=== PATIENT | female | born 1935 | race Caucasian/White ===

== ENCOUNTER 2018-07-30 16:38 | Inpatient (IN) | payer MEDICAID, MEDICARE ==
[~2018-07-30] VITALS: Ht 167.6 cm; Wt 52.7 kg
[~2018-07-30 16:38] MED LIST: AMI2 MT; AMLO2.5T45 MT; CARV3.1242 MT; LOSA50TA20 MT; SITA100T11 MT
[2018-07-30] MEDS ORDERED: SODIUM CHLORIDE 0.9% 1,000 ML IV ONE (18:14)
[2018-07-30] MEDS ORDERED: MORPHINE SULFATE 4 MG/ML CPJ (NOT FOR IM USE) IV STA (18:14)
[2018-07-30 18:32] LABS: BASOPHILS % 0.3 % (0.0-2.0); EOSINOPHILS % 1.4 % (0.0-5.0); HEMATOCRIT. 27.8 % (36.0-48.0); HEMOGLOBIN. 9.2 g/dL (12.0-16.0); LYMPHOCYTES % 7.5 % (20.0-50.0); MEAN CORPUSCULAR HEMOGLOBIN 33.2 pg (28.0-32.0); MEAN CORPUSCULAR VOLUME 100.6 fL (81.0-99.0); MEAN PLATELET VOLUME 8.7 fl (7.4-10.4); NEUTROPHILS % 83.8 % (40.0-76.0); PLATELET 185 x1000/uL (130-400); RED BLOOD CELL COUNT 2.76 mill/uL (4.2-5.4); RED CELL DISTRIBUTION WIDTH 15.2 % (11.6-14.6)
[2018-07-30 18:39] LABS: CHLORIDE 116 mEq/L (98-107)
[2018-07-30 18:48] LABS: CLARITY URINE CLEAR (CLEAR); COLOR URINE YELLOW (YELLOW); KETONES URINE NEGATIVE (NEGATIVE); LEUKOCYTE ESTERASE URINE NEGATIVE (NEGATIVE); NITRITE URINE NEGATIVE (NEGATIVE); OCCULT BLOOD URINE 1+ (NEGATIVE); PH URINE 5.5 (4.5-8.0); PROTEIN URINE 4+ (NEGATIVE); SPECIFIC GRAVITY URINE 1.019 (1.005-1.030); UROBILINOGEN URINE 0.2 E.U./dL (0.2-1.0)
[2018-07-30] MEDS ORDERED: SODIUM POLYSTYRENE SULFONATE 15 G/60 ML BOT PO ONE (19:30)
[2018-07-30 19:52] LABS: CREATINE KINASE 322 IU/L (26-192)
[2018-07-30] MEDS ORDERED: MORPHINE SULFATE 2 MG/ML CPJ (NOT FOR IM USE) IV NR (21:30)
[2018-07-30] MEDS ORDERED: DEXTROSE 50% WATER 50ML SYRINGE IV ONE (22:45)
[2018-07-30] MEDS ORDERED: SODIUM CHLORIDE 0.9% 1,000 ML IV SCH (23:15)
[2018-07-30 23:55] VITALS: BP 142/61
[2018-07-31] MEDS ORDERED: DEXTROSE 50% WATER 50ML SYRINGE IV PRN (00:30)
[2018-07-31] MEDS: SODIUM CHLORIDE 0.9% 1,000 ML IV SCH ×2 (01:22→11:30)
[2018-07-31] MEDS: MORPHINE SULFATE 10MG/5ML ORAL SOLN UDC PO PRN ×2 (01:26→13:40)
[2018-07-31 04:00] VITALS: BP 150/64
[2018-07-31] MEDS ORDERED: CEFTRIAXONE 1 G PREMIX 50 ML IV SCH ×2 (04:00→06:00)
[2018-07-31] MEDS: BLOOD SUGAR DIAGNOSTIC STRIP TEST SCH ×4 (07:30→21:43)
[2018-07-31 08:00] VITALS: BP 158/71
[2018-07-31] MEDS: INSULIN LISPRO 100 UNITS/ML SUBCUT SCH ×4 (08:00→21:55)
[2018-07-31] MEDS ORDERED: AMLODIPINE 10MG TABLET PO SCH (09:00)
[2018-07-31] MEDS: CARVEDILOL 3.125 MG TABLET PO SCH ×2 (10:23→21:57)
[2018-07-31] MEDS: AMLODIPINE 10MG TABLET PO SCH (10:23)
[2018-07-31] MEDS: AMIODARONE HCL 200 MG TABLET PO SCH (10:24)
[2018-07-31 12:00] VITALS: BP 133/73
[2018-07-31 12:20] LABS: BG BASE EXCESS -6.7 mmol/L (-2.0-2.0); BG CARBOXYHEMOGLOBIN 0.4 % (0.5-1.5); BG DEOXYHEMOGLOBIN 2.1 % (0.0-5.0); BG FRACTION INSPIRED OXYGEN 21; BG HCO3 ACT 17.4 mmol/L (22.0-26.0); BG METHEMOGLOBIN 0.1 % (0.0-1.5); BG OXYGEN SATURATION 97.9 % (92.0-98.5); BG OXYHEMOGLOBIN 97.4 % (94.0-97.0); BG PCO2 29.2 mmHg (35.0-45.0); BG PH 7.392 (7.350-7.450); BG PO2 117.3 mmHg (75.0-100.0); BG SAMPLE SITE RIGHT RADIAL; BG VENT MODE ROOM AIR
[2018-07-31] MEDS ORDERED: LIDOCAINE HCL 1% 20ML VIAL (Pyxis) INJ ONE (12:52)
[2018-07-31 16:00] VITALS: BP 157/65
[2018-07-31 20:00] VITALS: BP 115/58
[2018-07-31] MEDS ORDERED: EPOETIN ALFA 4000UNITS/ML VIAL SUBCUT NR (21:00)
[2018-08-01] VITALS (7 sets, daily range): BP systolic 129–168; BP diastolic 54–74
[2018-08-01] MEDS: SODIUM CHLORIDE 0.9% 1,000 ML IV SCH ×3 (04:45→20:55)
[2018-08-01] MEDS: BLOOD SUGAR DIAGNOSTIC STRIP TEST SCH ×4 (06:41→20:54)
[2018-08-01] MEDS: INSULIN LISPRO 100 UNITS/ML SUBCUT SCH ×4 (06:41→20:58)
[2018-08-01 08:10] LABS: BASOPHILS % 0.4 % (0.0-2.0); EOSINOPHILS % 4.1 % (0.0-5.0); HEMATOCRIT. 23.7 % (36.0-48.0); LYMPHOCYTES % 14.9 % (20.0-50.0); MEAN CORPUSCULAR HEMOGLOBIN 33.7 pg (28.0-32.0); MEAN CORPUSCULAR VOLUME 99.4 fL (81.0-99.0); MEAN PLATELET VOLUME 8.6 fl (7.4-10.4); MONOCYTES % 10.3 % (2.0-8.0); NEUTROPHILS % 70.3 % (40.0-76.0); PLATELET 162 x1000/uL (130-400); RED BLOOD CELL COUNT 2.38 mill/uL (4.2-5.4); RED CELL DISTRIBUTION WIDTH 14.9 % (11.6-14.6)
[2018-08-01 08:46] LABS: INR 1.1; PARTIAL THROMBOPLASTIN TIME 26.6 sec (23.4-31.0); PROTHROMBIN TIME 10.6 sec (9.1-11.1)
[2018-08-01 10:19] LABS: PHOSPHORUS 4.2 mg/dL (2.5-4.9)
[2018-08-01] MEDS: CITRIC ACID/SODIUM CITRATE SOLN 30ML UDC PO SCH ×3 (10:29→16:50)
[2018-08-01] MEDS: AMIODARONE HCL 200 MG TABLET PO SCH (10:30)
[2018-08-01] MEDS: AMLODIPINE 10MG TABLET PO SCH (10:30)
[2018-08-01] MEDS: CARVEDILOL 3.125 MG TABLET PO SCH ×2 (10:30→20:54)
[2018-08-01] MEDS ORDERED: AMLO10TA80 PO (13:03)
[2018-08-02 00:21] VITALS: BP 147/68
[2018-08-02 04:00] VITALS: BP 163/64
[2018-08-02] MEDS: BLOOD SUGAR DIAGNOSTIC STRIP TEST SCH ×4 (06:05→21:08)
[2018-08-02] MEDS: INSULIN LISPRO 100 UNITS/ML SUBCUT SCH ×4 (06:16→21:15)
[2018-08-02 08:00] VITALS: BP 178/70
[2018-08-02] MEDS: CITRIC ACID/SODIUM CITRATE SOLN 30ML UDC PO SCH ×3 (08:13→17:22)
[2018-08-02] MEDS: AMLODIPINE 10MG TABLET PO SCH (08:13)
[2018-08-02] MEDS: CARVEDILOL 3.125 MG TABLET PO SCH ×2 (08:13→21:11)
[2018-08-02] MEDS: AMIODARONE HCL 200 MG TABLET PO SCH (08:13)
[2018-08-02 11:21] LABS: BASOPHILS % 0.2 % (0.0-2.0); HEMATOCRIT. 23.3 % (36.0-48.0); HEMOGLOBIN. 7.9 g/dL (12.0-16.0); LYMPHOCYTES % 10.9 % (20.0-50.0); MEAN CORPUSCULAR HEMOGLOBIN 33.3 pg (28.0-32.0); MEAN CORPUSCULAR VOLUME 98.8 fL (81.0-99.0); MEAN PLATELET VOLUME 8.6 fl (7.4-10.4); NEUTROPHILS % 76.9 % (40.0-76.0); PLATELET 155 x1000/uL (130-400); RED BLOOD CELL COUNT 2.36 mill/uL (4.2-5.4); RED CELL DISTRIBUTION WIDTH 15.1 % (11.6-14.6)
[2018-08-02 12:00] VITALS: BP 147/56
[2018-08-02 12:04] LABS: PHOSPHORUS 3.7 mg/dL (2.5-4.9)
[2018-08-02 16:00] VITALS: BP 150/58
[2018-08-02] MEDS: SODIUM CHLORIDE 0.9% 1,000 ML IV SCH (18:11)
[2018-08-02 20:00] VITALS: BP 149/57
[2018-08-03] VITALS: BP 166/67
[2018-08-03 04:00] VITALS: BP 156/65
[2018-08-03] MEDS: BLOOD SUGAR DIAGNOSTIC STRIP TEST SCH ×4 (06:04→20:10)
[2018-08-03] MEDS: INSULIN LISPRO 100 UNITS/ML SUBCUT SCH ×4 (06:09→20:14)
[2018-08-03 07:08] LABS: BASOPHILS % 0.4 % (0.0-2.0); EOSINOPHILS % 3.2 % (0.0-5.0); HEMATOCRIT. 25.4 % (36.0-48.0); HEMOGLOBIN. 8.7 g/dL (12.0-16.0); LYMPHOCYTES % 18.5 % (20.0-50.0); MEAN CORPUSCULAR HEMOGLOBIN 33.6 pg (28.0-32.0); MEAN CORPUSCULAR VOLUME 98.7 fL (81.0-99.0); MEAN PLATELET VOLUME 8.6 fl (7.4-10.4); MONOCYTES % 9.9 % (2.0-8.0); PLATELET 169 x1000/uL (130-400); RED BLOOD CELL COUNT 2.58 mill/uL (4.2-5.4); RED CELL DISTRIBUTION WIDTH 14.6 % (11.6-14.6)
[2018-08-03 07:48] LABS: PHOSPHORUS 3.8 mg/dL (2.5-4.9)
[2018-08-03 08:00] VITALS: BP 131/65
[2018-08-03] MEDS: CITRIC ACID/SODIUM CITRATE SOLN 30ML UDC PO SCH ×3 (08:07→17:06)
[2018-08-03] MEDS: CARVEDILOL 3.125 MG TABLET PO SCH ×2 (08:07→20:08)
[2018-08-03] MEDS: AMLODIPINE 10MG TABLET PO SCH (08:07)
[2018-08-03] MEDS: AMIODARONE HCL 200 MG TABLET PO SCH (08:07)
[2018-08-03 12:00] VITALS: BP 145/56
[2018-08-03] MEDS: SODIUM CHLORIDE 0.9% 1,000 ML IV SCH (14:13)
[2018-08-03 16:00] VITALS: BP 148/67
[2018-08-03 20:00] VITALS: BP 152/56
[2018-08-03] MEDS: ACETAMINOPHEN 325MG TABLET PO PRN (20:07)
[2018-08-03] MEDS: MIRTAZAPINE 15MG TABLET PO SCH (20:07)
[2018-08-04] VITALS: BP 168/69
[2018-08-04 04:00] VITALS: BP 140/52
[2018-08-04] MEDS: BLOOD SUGAR DIAGNOSTIC STRIP TEST SCH ×4 (05:55→21:45)
[2018-08-04 06:56] LABS: BASOPHILS % 0.6 % (0.0-2.0); EOSINOPHILS % 3.6 % (0.0-5.0); HEMOGLOBIN. 8.2 g/dL (12.0-16.0); LYMPHOCYTES % 16.2 % (20.0-50.0); MEAN CORPUSCULAR HEMOGLOBIN 33.3 pg (28.0-32.0); MEAN PLATELET VOLUME 8.5 fl (7.4-10.4); MONOCYTES % 11.2 % (2.0-8.0); NEUTROPHILS % 68.4 % (40.0-76.0); PLATELET 174 x1000/uL (130-400); RED BLOOD CELL COUNT 2.45 mill/uL (4.2-5.4); RED CELL DISTRIBUTION WIDTH 14.7 % (11.6-14.6)
[2018-08-04] MEDS: INSULIN LISPRO 100 UNITS/ML SUBCUT SCH ×4 (07:15→21:46)
[2018-08-04 07:38] LABS: PHOSPHORUS 3.4 mg/dL (2.5-4.9)
[2018-08-04 08:00] VITALS: BP 164/60
[2018-08-04] MEDS: AMIODARONE HCL 200 MG TABLET PO SCH (08:45)
[2018-08-04] MEDS: CARVEDILOL 3.125 MG TABLET PO SCH (08:46)
[2018-08-04] MEDS: CITRIC ACID/SODIUM CITRATE SOLN 30ML UDC PO SCH ×2 (09:00→18:52)
[2018-08-04] MEDS: AMLODIPINE 10MG TABLET PO SCH (09:00)
[2018-08-04] MEDS: ACETAMINOPHEN 325MG TABLET PO PRN (11:13)
[2018-08-04] MEDS: SODIUM CHLORIDE 0.9% 1,000 ML IV SCH (11:26)
[2018-08-04 12:00] VITALS: BP 157/60
[2018-08-04 16:00] VITALS: BP 155/58
[2018-08-04] MEDS: HYDRALAZINE HCL 25MG TABLET PO SCH (18:51)
[2018-08-04 20:00] VITALS: BP_SYST 99
[2018-08-04] MEDS: MIRTAZAPINE 15MG TABLET PO SCH (21:45)
[2018-08-05] VITALS: BP 166/57
[2018-08-05] MEDS: CARVEDILOL 3.125 MG TABLET PO SCH ×2 (01:27→08:56)
[2018-08-05] MEDS: HYDRALAZINE HCL 25MG TABLET PO SCH ×2 (01:37→04:57)
[2018-08-05 04:00] VITALS: BP 176/69
[2018-08-05 05:40] LABS: BASOPHILS % 0.1 % (0.0-2.0); MEAN CORPUSCULAR HEMOGLOBIN 33.8 pg (28.0-32.0); MEAN PLATELET VOLUME 8.2 fl (7.4-10.4); MONOCYTES % 8.3 % (2.0-8.0); NEUTROPHILS % 78.6 % (40.0-76.0); PLATELET 226 x1000/uL (130-400); RED BLOOD CELL COUNT 3.01 mill/uL (4.2-5.4); RED CELL DISTRIBUTION WIDTH 14.7 % (11.6-14.6)
[2018-08-05 06:00] LABS: PHOSPHORUS 3.7 mg/dL (2.5-4.9)
[2018-08-05] MEDS: BLOOD SUGAR DIAGNOSTIC STRIP TEST SCH ×2 (06:15→11:45)
[2018-08-05] MEDS: INSULIN LISPRO 100 UNITS/ML SUBCUT SCH ×2 (06:16→13:37)
[2018-08-05 08:00] VITALS: BP 178/63
[2018-08-05 08:24] LABS: HEMATOCRIT. 29.8 % (36.0-48.0); HEMOGLOBIN. 10.2 g/dL (12.0-16.0)
[2018-08-05] MEDS: AMLODIPINE 10MG TABLET PO SCH (08:55)
[2018-08-05] MEDS: AMIODARONE HCL 200 MG TABLET PO SCH (08:56)
[2018-08-05 12:00] VITALS: BP 146/58
[2018-08-05 13:16] LABS: ALBUMIN 2.6 g/dL (2.9-4.4); ALPHA-1-GLOBULIN 0.2 g/dL (0.0-0.4); ALPHA-2-GLOBULIN 0.8 g/dL (0.4-1.0); BETA GLOBULIN 0.7 g/dL (0.7-1.3); GAMMA GLOBULINS 0.7 g/dL (0.4-1.8); GLOBULIN TOTAL 2.5 g/dL (2.2-3.9); M-SPIKE Not Observed g/dL (Not Observed); TOTAL PROTEIN SERUM 5.1 g/dL (6.0-8.5)
[2018-08-05] MEDS ORDERED: HYDRALAZINE HCL 100MG TABLET PO SCH (14:00)
[2018-08-05 14:31] VITALS: BP 146/58
[2018-08-05 16:00] VITALS: BP 106/60
== END 2018-08-05 17:05 | DRG 683 ==
LOC: ER 16:38 → 5EST 19:41 → EDBEDREQTM 19:46 → EDBEDREQ 19:46 → ENRESERV 22:05 → 5WST 07-31 18:20
PROVIDERS: ADMIT Internal Medicine; ATTEND Internal Medicine
PROC: 02HV33Z Insertion of Infusion Device into Superior Vena Cava, Percutaneous Approach (ICD-10-PCS; principal; 2018-07-31)
PROC: B548ZZA Ultrasonography of Superior Vena Cava, Guidance (ICD-10-PCS; 2018-07-31)
DX: N17.9 Acute kidney failure, unspecified (principal); M62.82 Rhabdomyolysis; E44.1 Mild protein-calorie malnutrition; G96.0 Cerebrospinal fluid leak; E87.2 Acidosis; Z68.1 Body mass index [BMI] 19.9 or less, adult; N18.4 Chronic kidney disease, stage 4 (severe); E87.5 Hyperkalemia; E11.22 Type 2 diabetes mellitus with diabetic chronic kidney disease; D63.8 Anemia in other chronic diseases classified elsewhere; E78.00 Pure hypercholesterolemia, unspecified; E78.5 Hyperlipidemia, unspecified; M25.551 Pain in right hip; I13.10 Hypertensive heart and chronic kidney disease without heart failure, with stage 1 through stage 4 chronic kidney disease, or unspecified chronic kidney disease; J84.10 Pulmonary fibrosis, unspecified; N28.1 Cyst of kidney, acquired; J44.9 Chronic obstructive pulmonary disease, unspecified; E87.8 Other disorders of electrolyte and fluid balance, not elsewhere classified; F03.90 Unspecified dementia, unspecified severity, without behavioral disturbance, psychotic disturbance, mood disturbance, and anxiety; Z96.641 Presence of right artificial hip joint; W18.39XA Other fall on same level, initial encounter; Z82.49 Family history of ischemic heart disease and other diseases of the circulatory system; Z83.3 Family history of diabetes mellitus; Z90.710 Acquired absence of both cervix and uterus; Z88.0 Allergy status to penicillin; Z79.899 Other long term (current) drug therapy; Z87.81 Personal history of (healed) traumatic fracture; Y93.89 Activity, other specified; Y92.89 Other specified places as the place of occurrence of the external cause; Y99.8 Other external cause status
CPT/HCPCS: 36415; 36569; 36600; 71045; 73502; 76770; 76937; 80048; 82375; 82550; 82805; 82962; 83735; 84100; 84155; 84165; 84484; 93005; 93306; 96360; 97116; 97162; 97530; 99285; C1725; J0696; J0885; J1815; J2270; J3490; J7030

== ENCOUNTER 2018-09-08 10:10 | Emergency (ER) | payer MEDICARE, MEDICAID ==
[~2018-09-08] VITALS: Ht 152.4 cm; Wt 60.0 kg
[~2018-09-08 10:10] MED LIST changes: +AMLO10TA80 PO; -AMLO2.5T45 MT; -CARV3.1242 MT; -LOSA50TA20 MT
[2018-09-08 14:01] LABS: BASOPHILS % 0.6 % (0.0-2.0); EOSINOPHILS % 4.2 % (0.0-5.0); HEMATOCRIT. 23.4 % (36.0-48.0); HEMOGLOBIN. 7.8 g/dL (12.0-16.0); LYMPHOCYTES % 19.4 % (20.0-50.0); MEAN CORPUSCULAR HEMOGLOBIN 33.8 pg (28.0-32.0); MEAN CORPUSCULAR VOLUME 101.1 fL (81.0-99.0); MEAN PLATELET VOLUME 8.9 fl (7.4-10.4); NEUTROPHILS % 62.8 % (40.0-76.0); PLATELET 216 x1000/uL (130-400); RED BLOOD CELL COUNT 2.31 mill/uL (4.2-5.4)
[2018-09-08 14:02] LABS: CHLORIDE 103 mEq/L (98-107)
[2018-09-08 14:04] LABS: PARTIAL THROMBOPLASTIN TIME 26.4 sec (23.4-31.0); PROTHROMBIN TIME 10.4 sec (9.1-11.1)
[2018-09-08 14:25] VITALS: BP 135/68
== END 2018-09-08 16:41 ==
LOC: ER 10:10 → ENRESERV 13:07 → CANRESERV 13:07 → CANBEDREQ 14:16 → ER 16:41
DX: D64.9 Anemia, unspecified (principal); K92.2 Gastrointestinal hemorrhage, unspecified; R09.02 Hypoxemia; R23.1 Pallor; I13.0 Hypertensive heart and chronic kidney disease with heart failure and stage 1 through stage 4 chronic kidney disease, or unspecified chronic kidney disease; E11.22 Type 2 diabetes mellitus with diabetic chronic kidney disease; N18.9 Chronic kidney disease, unspecified; I50.9 Heart failure, unspecified; Z79.899 Other long term (current) drug therapy
CPT/HCPCS: 36415; 86850; 86900; 99283

== ENCOUNTER 2018-09-15 13:57 | Inpatient (IN) | payer MEDICARE, MEDICAID ==
[~2018-09-15] VITALS: Ht 157.5 cm; Wt 67.1 kg
[2018-09-15 15:37] LABS: BASOPHILS % 0.3 % (0.0-2.0); HEMATOCRIT. 23.7 % (36.0-48.0); HEMOGLOBIN. 7.7 g/dL (12.0-16.0); LYMPHOCYTES % 16.7 % (20.0-50.0); MEAN CORPUSCULAR HEMOGLOBIN 32.7 pg (28.0-32.0); MEAN CORPUSCULAR VOLUME 100.5 fL (81.0-99.0); MEAN PLATELET VOLUME 7.8 fl (7.4-10.4); MONOCYTES % 11.5 % (2.0-8.0); NEUTROPHILS % 67.5 % (40.0-76.0); PLATELET 177 x1000/uL (130-400); RED BLOOD CELL COUNT 2.36 mill/uL (4.2-5.4); RED CELL DISTRIBUTION WIDTH 14.1 % (11.6-14.6)
[2018-09-15 15:39] LABS: CHLORIDE 107 mEq/L (98-107)
[2018-09-15 16:06] LABS: HEPATITIS B SURFACE ANTIGEN NEGATIVE
[2018-09-15 16:36] LABS: HEPATITIS A AB IGM NEGATIVE (NEGATIVE)
[2018-09-15] MEDS ORDERED: ONDANSETRON HCL 4MG/2ML INJ IV PRN (18:00)
[2018-09-15] MEDS ORDERED: DIPHENHYDRAMINE 50MG/ML VIAL IV PRN (18:00)
[2018-09-15] MEDS ORDERED: IPRATROPIUM/ALBUTEROL 0.5-3(2.5)MG/3ML NEB INH PRN (18:00)
[2018-09-15] MEDS ORDERED: ACETAMINOPHEN 325MG TABLET PO PRN (18:00)
[2018-09-15] MEDS ORDERED: HYDROCODONE/ACETAMINOPHEN 5/325MG TABLET PO PRN (18:00)
[2018-09-15 19:27] LABS: CLARITY URINE CLEAR (CLEAR); COLOR URINE YELLOW (YELLOW); KETONES URINE NEGATIVE (NEGATIVE); LEUKOCYTE ESTERASE URINE NEGATIVE (NEGATIVE); NITRITE URINE NEGATIVE (NEGATIVE); OCCULT BLOOD URINE NEGATIVE (NEGATIVE); PH URINE 6.5 (4.5-8.0); PROTEIN URINE 3+ (NEGATIVE); SPECIFIC GRAVITY URINE 1.013 (1.005-1.030); UROBILINOGEN URINE 0.2 E.U./dL (0.2-1.0)
[2018-09-15] MEDS ORDERED: DEXTROSE 50% WATER 50ML SYRINGE IV PRN (23:00)
[2018-09-15 23:44] VITALS: BP 165/56
[2018-09-16] VITALS (12 sets, daily range): BP systolic 106–174; BP diastolic 46–79
[2018-09-16 06:23] LABS: BASOPHILS % 0.2 % (0.0-2.0); EOSINOPHILS % 5.1 % (0.0-5.0); HEMATOCRIT. 23.4 % (36.0-48.0); HEMOGLOBIN. 7.8 g/dL (12.0-16.0); LYMPHOCYTES % 21.7 % (20.0-50.0); MEAN CORPUSCULAR HEMOGLOBIN 33.1 pg (28.0-32.0); MEAN CORPUSCULAR VOLUME 99.6 fL (81.0-99.0); MEAN PLATELET VOLUME 7.9 fl (7.4-10.4); MONOCYTES % 11.1 % (2.0-8.0); NEUTROPHILS % 61.9 % (40.0-76.0); PLATELET 173 x1000/uL (130-400); RED BLOOD CELL COUNT 2.35 mill/uL (4.2-5.4); RED CELL DISTRIBUTION WIDTH 13.6 % (11.6-14.6)
[2018-09-16 06:40] LABS: PHOSPHORUS 4.9 mg/dL (2.5-4.9)
[2018-09-16] MEDS: BLOOD SUGAR DIAGNOSTIC STRIP TEST SCH ×4 (07:00→20:17)
[2018-09-16] MEDS: INSULIN LISPRO 100 UNITS/ML SUBCUT SCH ×4 (07:01→20:17)
[2018-09-16] MEDS ORDERED: CLINDAMYCIN 600 MG in DEXTROSE 5% WATER 50 ML IV ONE (13:45)
[2018-09-16] MEDS ORDERED: SODIUM BICARBONATE 4% (2.4MEQ) 5ML VIAL IV ONE (13:52)
[2018-09-16] MEDS ORDERED: LIDOCAINE HCL 1% 20ML VIAL (Pyxis) INJ ONE (13:52)
[2018-09-16] MEDS ORDERED: HEPARIN 1000 UNITS/ML 10ML ONE (13:52)
[2018-09-16 14:14] LABS: INR 1.1; PARTIAL THROMBOPLASTIN TIME 27.5 sec (23.4-31.0); PROTHROMBIN TIME 10.8 sec (9.1-11.1)
[2018-09-16] MEDS: LEVOTHYROXINE SODIUM 25MCG TABLET PO SCH (18:31)
[2018-09-16] MEDS: EPOETIN ALFA 10000UNITS/ML VIAL SUBCUT SCH (20:54)
[2018-09-17] VITALS: BP 111/83
[2018-09-17 04:00] VITALS: BP 127/76
[2018-09-17] MEDS: BLOOD SUGAR DIAGNOSTIC STRIP TEST SCH ×4 (06:13→20:46)
[2018-09-17] MEDS: LEVOTHYROXINE SODIUM 25MCG TABLET PO SCH (06:19)
[2018-09-17] MEDS: INSULIN LISPRO 100 UNITS/ML SUBCUT SCH ×4 (06:21→20:49)
[2018-09-17 08:00] VITALS: BP 90/68
[2018-09-17] MEDS: AMLODIPINE 10MG TABLET PO SCH (08:54)
[2018-09-17] MEDS: AMIODARONE HCL 200 MG TABLET PO SCH (10:05)
[2018-09-17 13:00] VITALS: BP 100/67
[2018-09-17 16:28] VITALS: BP 132/74
[2018-09-17 18:42] LABS: BASOPHILS % 0.3 % (0.0-2.0); EOSINOPHILS % 1.5 % (0.0-5.0); HEMATOCRIT. 29.1 % (36.0-48.0); HEMOGLOBIN. 9.7 g/dL (12.0-16.0); LYMPHOCYTES % 7.4 % (20.0-50.0); MEAN CORPUSCULAR HEMOGLOBIN 32.7 pg (28.0-32.0); MEAN CORPUSCULAR VOLUME 97.5 fL (81.0-99.0); MEAN PLATELET VOLUME 7.7 fl (7.4-10.4); MONOCYTES % 9.2 % (2.0-8.0); NEUTROPHILS % 81.6 % (40.0-76.0); PLATELET 156 x1000/uL (130-400); RED BLOOD CELL COUNT 2.98 mill/uL (4.2-5.4); RED CELL DISTRIBUTION WIDTH 15.5 % (11.6-14.6)
[2018-09-17 20:00] VITALS: BP 135/110
[2018-09-18] VITALS (15 sets, daily range): BP systolic 110–185; BP diastolic 63–95
[2018-09-18] MEDS: LEVOTHYROXINE SODIUM 25MCG TABLET PO SCH (06:14)
[2018-09-18] MEDS: INSULIN LISPRO 100 UNITS/ML SUBCUT SCH ×4 (06:14→20:48)
[2018-09-18] MEDS: BLOOD SUGAR DIAGNOSTIC STRIP TEST SCH ×4 (06:14→20:48)
[2018-09-18] MEDS ORDERED: LIDOCAINE HCL/EPINEPHRINE 1%-EPI 1:100,000 20 ML VIAL ONE (08:07)
[2018-09-18] MEDS ORDERED: SODIUM BICARBONATE 4% (2.4MEQ) 5ML VIAL IV ONE (08:08)
[2018-09-18] MEDS ORDERED: LIDOCAINE HCL 1% 20ML VIAL (Pyxis) INJ ONE (08:08)
[2018-09-18] MEDS ORDERED: CEFAZOLIN 1000MG PREMIX 0 ML IV ONE (08:47)
[2018-09-18] MEDS ORDERED: FENTANYL CITRATE/PF 50MCG/ML 2ML VIAL ONE (08:47)
[2018-09-18] MEDS ORDERED: FENTANYL CITRATE/PF 50MCG/ML 2ML VIAL IV ONE (08:50)
[2018-09-18] MEDS: AMLODIPINE 10MG TABLET PO SCH (09:00)
[2018-09-18] MEDS ORDERED: IOHEXOL-300 50 ML BOTTLE IV ONE (09:02)
[2018-09-18 11:07] LABS: INR 1.1; PROTHROMBIN TIME 10.7 sec (9.1-11.1)
[2018-09-18 11:07] LABS: BASOPHILS % 0.2 % (0.0-2.0); EOSINOPHILS % 2.3 % (0.0-5.0); HEMATOCRIT. 28.8 % (36.0-48.0); HEMOGLOBIN. 9.5 g/dL (12.0-16.0); LYMPHOCYTES % 12.7 % (20.0-50.0); MEAN CORPUSCULAR HEMOGLOBIN 32.4 pg (28.0-32.0); MEAN CORPUSCULAR VOLUME 97.8 fL (81.0-99.0); MEAN PLATELET VOLUME 7.8 fl (7.4-10.4); MONOCYTES % 9.5 % (2.0-8.0); NEUTROPHILS % 75.3 % (40.0-76.0); PLATELET 148 x1000/uL (130-400); RED BLOOD CELL COUNT 2.95 mill/uL (4.2-5.4); RED CELL DISTRIBUTION WIDTH 15.2 % (11.6-14.6)
[2018-09-18] MEDS: AMIODARONE HCL 200 MG TABLET PO SCH (11:21)
[2018-09-18] MEDS: IRON SUCROSE COMPLEX 100 MG/5 ML ML IV SCH (11:21)
[2018-09-18 12:37] LABS: T4 FREE 1.07 ng/dL (0.76-1.46)
[2018-09-18 13:02] LABS: VITAMIN B12 SERUM 1156 pg/mL (211-911)
[2018-09-18 13:16] LABS: FOLIC ACID (FOLATE) SERUM > 20.00 ng/mL (>5.38)
[2018-09-18 14:21] LABS: FERRITIN 462 ng/mL (10-291)
[2018-09-18] MEDS: EPOETIN ALFA 10000UNITS/ML VIAL SUBCUT SCH (21:13)
[2018-09-19] VITALS: BP_SYST 121; BP_SYST 167; BP_SYST 185; BP_DIAS 63; BP_DIAS 77; BP_DIAS 92
[2018-09-19] MEDS: LORAZEPAM 0.5MG TABLET PO PRN ×2 (01:00→21:39)
[2018-09-19] MEDS: CLONIDINE 0.1MG TABLET PO PRN ×2 (01:01→18:09)
[2018-09-19] MEDS: INSULIN LISPRO 100 UNITS/ML SUBCUT SCH ×4 (06:20→21:00)
[2018-09-19] MEDS: BLOOD SUGAR DIAGNOSTIC STRIP TEST SCH ×4 (06:20→21:38)
[2018-09-19] MEDS: LEVOTHYROXINE SODIUM 25MCG TABLET PO SCH (06:21)
[2018-09-19 07:26] LABS: BASOPHILS % 0.3 % (0.0-2.0); EOSINOPHILS % 1.3 % (0.0-5.0); HEMATOCRIT. 29.2 % (36.0-48.0); HEMOGLOBIN. 9.6 g/dL (12.0-16.0); MEAN CORPUSCULAR HEMOGLOBIN 32.3 pg (28.0-32.0); MEAN CORPUSCULAR VOLUME 98.2 fL (81.0-99.0); MEAN PLATELET VOLUME 8.2 fl (7.4-10.4); MONOCYTES % 12.1 % (2.0-8.0); NEUTROPHILS % 70.3 % (40.0-76.0); PLATELET 109 x1000/uL (130-400); RED BLOOD CELL COUNT 2.98 mill/uL (4.2-5.4); RED CELL DISTRIBUTION WIDTH 15.2 % (11.6-14.6)
[2018-09-19 08:00] VITALS: BP 186/71
[2018-09-19] MEDS: AMIODARONE HCL 200 MG TABLET PO SCH (09:13)
[2018-09-19] MEDS: AMLODIPINE 10MG TABLET PO SCH (09:13)
[2018-09-19] MEDS: IRON SUCROSE COMPLEX 100 MG/5 ML ML IV SCH (09:14)
[2018-09-19 20:00] VITALS: BP 152/62
[2018-09-20] VITALS (8 sets, daily range): BP systolic 129–190; BP diastolic 56–78
[2018-09-20] MEDS: LEVOTHYROXINE SODIUM 25MCG TABLET PO SCH (06:21)
[2018-09-20 07:03] LABS: BASOPHILS % 0.4 % (0.0-2.0); EOSINOPHILS % 2.9 % (0.0-5.0); HEMATOCRIT. 24.4 % (36.0-48.0); HEMOGLOBIN. 8.1 g/dL (12.0-16.0); LYMPHOCYTES % 17.1 % (20.0-50.0); MEAN CORPUSCULAR HEMOGLOBIN 32.2 pg (28.0-32.0); MEAN CORPUSCULAR VOLUME 96.6 fL (81.0-99.0); MEAN PLATELET VOLUME 8.5 fl (7.4-10.4); MONOCYTES % 12.7 % (2.0-8.0); NEUTROPHILS % 66.9 % (40.0-76.0); PLATELET 115 x1000/uL (130-400); RED BLOOD CELL COUNT 2.52 mill/uL (4.2-5.4); RED CELL DISTRIBUTION WIDTH 14.8 % (11.6-14.6)
[2018-09-20] MEDS: BLOOD SUGAR DIAGNOSTIC STRIP TEST SCH ×4 (07:03→21:43)
[2018-09-20] MEDS: INSULIN LISPRO 100 UNITS/ML SUBCUT SCH ×4 (07:03→21:00)
[2018-09-20] MEDS: AMLODIPINE 10MG TABLET PO SCH (09:00)
[2018-09-20] MEDS: AMIODARONE HCL 200 MG TABLET PO SCH (09:20)
[2018-09-20] MEDS: IRON SUCROSE COMPLEX 100 MG/5 ML ML IV SCH (09:20)
[2018-09-20] MEDS ORDERED: ATOR20TA65 MT (14:34)
[2018-09-20 15:55] LABS: HEMOGLOBIN 9.1 g/dL (12.0-16.0); MEAN CORPUSCULAR HEMOGLOBIN 32.7 pg (28.0-32.0); PLATELET 113 x1000/uL (130-400); RED BLOOD CELL COUNT 2.79 mill/uL (4.2-5.4); RED CELL DISTRIBUTION WIDTH 14.8 % (11.6-14.6)
[2018-09-20] MEDS: LORAZEPAM 0.5MG TABLET PO PRN (19:58)
[2018-09-20] MEDS: CLONIDINE 0.1MG TABLET PO PRN (19:58)
[2018-09-20] MEDS: EPOETIN ALFA 10000UNITS/ML VIAL SUBCUT SCH (21:43)
[2018-09-20 21:56] LABS: HEMATOCRIT 27.6 % (36.0-48.0); HEMOGLOBIN 9.1 g/dL (12.0-16.0)
[2018-09-21] VITALS (7 sets, daily range): BP systolic 113–188; BP diastolic 52–87
[2018-09-21] MEDS: CLONIDINE 0.1MG TABLET PO PRN (05:34)
[2018-09-21] MEDS: LEVOTHYROXINE SODIUM 25MCG TABLET PO SCH (06:16)
[2018-09-21] MEDS: BLOOD SUGAR DIAGNOSTIC STRIP TEST SCH ×4 (06:17→21:00)
[2018-09-21] MEDS: INSULIN LISPRO 100 UNITS/ML SUBCUT SCH ×4 (06:17→21:00)
[2018-09-21 07:53] LABS: BASOPHILS % 0.2 % (0.0-2.0); EOSINOPHILS % 1.6 % (0.0-5.0); HEMATOCRIT. 26.8 % (36.0-48.0); HEMOGLOBIN. 8.9 g/dL (12.0-16.0); LYMPHOCYTES % 9.8 % (20.0-50.0); MEAN CORPUSCULAR HEMOGLOBIN 32.4 pg (28.0-32.0); MEAN CORPUSCULAR VOLUME 97.9 fL (81.0-99.0); MEAN PLATELET VOLUME 7.9 fl (7.4-10.4); MONOCYTES % 10.7 % (2.0-8.0); NEUTROPHILS % 77.7 % (40.0-76.0); PLATELET 136 x1000/uL (130-400); RED BLOOD CELL COUNT 2.73 mill/uL (4.2-5.4); RED CELL DISTRIBUTION WIDTH 14.9 % (11.6-14.6)
[2018-09-21] MEDS: IRON SUCROSE COMPLEX 100 MG/5 ML ML IV SCH (08:33)
[2018-09-21] MEDS: AMIODARONE HCL 200 MG TABLET PO SCH (08:33)
[2018-09-21] MEDS: AMLODIPINE 10MG TABLET PO SCH (08:34)
[2018-09-21 10:31] LABS: INR 1.1; PROTHROMBIN TIME 10.7 sec (9.1-11.1)
[2018-09-21] MEDS: RISPERIDONE 0.5MG TABLET PO SCH (20:41)
[2018-09-22] VITALS (13 sets, daily range): BP systolic 147–176; BP diastolic 55–87
[2018-09-22] MEDS: CLONIDINE 0.1MG TABLET PO PRN ×2 (00:36→21:47)
[2018-09-22] MEDS: BLOOD SUGAR DIAGNOSTIC STRIP TEST SCH ×4 (06:20→21:52)
[2018-09-22] MEDS: LEVOTHYROXINE SODIUM 25MCG TABLET PO SCH (06:20)
[2018-09-22] MEDS: INSULIN LISPRO 100 UNITS/ML SUBCUT SCH ×4 (06:20→21:00)
[2018-09-22 09:31] LABS: HEMATOCRIT. 25.4 % (36.0-48.0); HEMOGLOBIN. 8.5 g/dL (12.0-16.0); MEAN CORPUSCULAR HEMOGLOBIN 32.9 pg (28.0-32.0); MEAN CORPUSCULAR VOLUME 97.9 fL (81.0-99.0); MEAN PLATELET VOLUME 7.3 fl (7.4-10.4); PLATELET 139 x1000/uL (130-400); RED BLOOD CELL COUNT 2.59 mill/uL (4.2-5.4); RED CELL DISTRIBUTION WIDTH 14.8 % (11.6-14.6)
[2018-09-22] MEDS ORDERED: SODIUM BICARBONATE 4% (2.4MEQ) 5ML VIAL IV ONE (10:02)
[2018-09-22] MEDS ORDERED: LIDOCAINE HCL 1% 20ML VIAL (Pyxis) INJ ONE (10:02)
[2018-09-22 10:49] LABS: PLATELET ESTIMATE NORMAL
[2018-09-22] MEDS: AMLODIPINE 10MG TABLET PO SCH (18:27)
[2018-09-22] MEDS: AMIODARONE HCL 200 MG TABLET PO SCH (18:27)
[2018-09-22] MEDS: IRON SUCROSE COMPLEX 100 MG/5 ML ML IV SCH (18:27)
[2018-09-22] MEDS: RISPERIDONE 0.5MG TABLET PO SCH (21:00)
== END 2018-09-22 23:05 | DRG 673 ==
LOC: ER 13:57 → 8WST 17:24 → EDBEDREQ 17:29 → EDBEDREQTM 17:29 → ENRESERV 21:29 → 8WST 09-17 15:16 → UNDODISIN 09-17 22:30
PROVIDERS: ADMIT Internal Medicine; ATTEND Internal Medicine
PROC: 5A1D70Z Performance of Urinary Filtration, Intermittent, Less than 6 Hours Per Day (ICD-10-PCS; 2018-09-15)
PROC: 0JH63XZ Insertion of Tunneled Vascular Access Device into Chest Subcutaneous Tissue and Fascia, Percutaneous Approach (ICD-10-PCS; principal; 2018-09-16)
PROC: 02H633Z Insertion of Infusion Device into Right Atrium, Percutaneous Approach (ICD-10-PCS; 2018-09-16)
PROC: B244ZZZ Ultrasonography of Right Heart (ICD-10-PCS; 2018-09-16)
PROC: 30233N1 Transfusion of Nonautologous Red Blood Cells into Peripheral Vein, Percutaneous Approach (ICD-10-PCS; 2018-09-16)
PROC: B2141ZZ Fluoroscopy of Right Heart using Low Osmolar Contrast (ICD-10-PCS; 2018-09-16)
PROC: 5A1D70Z Performance of Urinary Filtration, Intermittent, Less than 6 Hours Per Day (ICD-10-PCS; 2018-09-18)
PROC: 0JH63XZ Insertion of Tunneled Vascular Access Device into Chest Subcutaneous Tissue and Fascia, Percutaneous Approach (ICD-10-PCS; 2018-09-18)
PROC: 02HV33Z Insertion of Infusion Device into Superior Vena Cava, Percutaneous Approach (ICD-10-PCS; 2018-09-18)
PROC: B5181ZA Fluoroscopy of Superior Vena Cava using Low Osmolar Contrast, Guidance (ICD-10-PCS; 2018-09-18)
PROC: B548ZZA Ultrasonography of Superior Vena Cava, Guidance (ICD-10-PCS; 2018-09-18)
PROC: 5A1D70Z Performance of Urinary Filtration, Intermittent, Less than 6 Hours Per Day (ICD-10-PCS; 2018-09-19)
PROC: 5A1D70Z Performance of Urinary Filtration, Intermittent, Less than 6 Hours Per Day (ICD-10-PCS; 2018-09-22)
PROC: 0JH63XZ Insertion of Tunneled Vascular Access Device into Chest Subcutaneous Tissue and Fascia, Percutaneous Approach (ICD-10-PCS; 2018-09-22)
PROC: 02HV33Z Insertion of Infusion Device into Superior Vena Cava, Percutaneous Approach (ICD-10-PCS; 2018-09-22)
PROC: B5181ZA Fluoroscopy of Superior Vena Cava using Low Osmolar Contrast, Guidance (ICD-10-PCS; 2018-09-22)
PROC: B548ZZA Ultrasonography of Superior Vena Cava, Guidance (ICD-10-PCS; 2018-09-22)
DX: I12.0 Hypertensive chronic kidney disease with stage 5 chronic kidney disease or end stage renal disease (principal); N18.6 End stage renal disease; E44.0 Moderate protein-calorie malnutrition; D63.1 Anemia in chronic kidney disease; E11.22 Type 2 diabetes mellitus with diabetic chronic kidney disease; E03.9 Hypothyroidism, unspecified; E78.5 Hyperlipidemia, unspecified; E78.00 Pure hypercholesterolemia, unspecified; F03.90 Unspecified dementia, unspecified severity, without behavioral disturbance, psychotic disturbance, mood disturbance, and anxiety; E55.9 Vitamin D deficiency, unspecified; J44.9 Chronic obstructive pulmonary disease, unspecified; Z90.710 Acquired absence of both cervix and uterus; Z99.2 Dependence on renal dialysis; Z88.0 Allergy status to penicillin; Z68.27 Body mass index [BMI] 27.0-27.9, adult; Z78.1 Physical restraint status; Z79.899 Other long term (current) drug therapy; Z79.84 Long term (current) use of oral hypoglycemic drugs
CPT/HCPCS: 36415; 36558; 71045; 76937; 77001; 80048; 80061; 82140; 82607; 82728; 82746; 82962; 83036; 83540; 83550; 83735; 83880; 84100; 84439; 84443; 84481; 84484; 85014; 85018; 85027; 85044; 86705; 86706; 86709; 86803; 86850; 86900; 86920; 87340; 93005; 93970; 99152; 99153; 99285; C1750; C1769; C1887; C1893; J0690; J0885; J1642; J1644; J1815; J3010; J3490; J7040; J7050; J7060; P9016; Q9967; G0500

== ENCOUNTER 2019-01-12 23:32 | Inpatient (IN) | payer MEDICARE, MEDICAID ==
[~2019-01-12] VITALS: Ht 152.4 cm; Wt 52.2 kg
[~2019-01-12 23:32] MED LIST changes: +ATOR20TA65 MT
[2019-01-13] MEDS ORDERED: MORPHINE SULFATE 4 MG/ML CPJ (NOT FOR IM USE) IV STA (02:02)
[2019-01-13] MEDS ORDERED: ONDANSETRON HCL 4MG/2ML INJ IV STA (02:02)
[2019-01-13 02:29] LABS: CHLORIDE 101 mEq/L (98-107)
[2019-01-13 02:31] LABS: PROTHROMBIN TIME 9.9 sec (9.6-11.0)
[2019-01-13 02:34] LABS: BASOPHILS % 0.2 % (0.0-2.0); EOSINOPHILS % 1.2 % (0.0-5.0); HEMATOCRIT. 28.5 % (36.0-48.0); HEMOGLOBIN. 9.5 g/dL (12.0-16.0); LYMPHOCYTES % 9.7 % (20.0-50.0); MEAN CORPUSCULAR HEMOGLOBIN 32.1 pg (28.0-32.0); MEAN CORPUSCULAR VOLUME 96.1 fL (81.0-99.0); MEAN PLATELET VOLUME 7.9 fl (7.4-10.4); MONOCYTES % 8.4 % (2.0-8.0); NEUTROPHILS % 80.5 % (40.0-76.0); PLATELET 223 x1000/uL (130-400); RED BLOOD CELL COUNT 2.97 mill/uL (4.2-5.4); RED CELL DISTRIBUTION WIDTH 14.8 % (11.6-14.6)
[2019-01-13 02:36] LABS: BETA HYDROXYBUTYRATE 0.1 mMol/L (0.0-0.3)
[2019-01-13] MEDS ORDERED: INSULIN REGULAR (HUMULIN R) 300UNITS/3ML SUBCUT ONE (04:15)
[2019-01-13 08:00] VITALS: BP 142/35
[2019-01-13 08:20] VITALS: BP 142/35
[2019-01-13] MEDS ORDERED: CLONIDINE 0.1MG TABLET PO PRN (09:45)
[2019-01-13] MEDS ORDERED: HYDROMORPHONE HCL/PF 2MG/ML CPJ IV PRN (09:45)
[2019-01-13] MEDS ORDERED: IPRATROPIUM/ALBUTEROL 0.5-3(2.5)MG/3ML NEB INH PRN (09:45)
[2019-01-13] MEDS ORDERED: ONDANSETRON HCL 4MG/2ML INJ IV PRN (09:45)
[2019-01-13] MEDS ORDERED: DEXTROSE 50% WATER 50ML SYRINGE IV PRN (11:45)
[2019-01-13 12:00] VITALS: BP 137/36
[2019-01-13] MEDS ORDERED: FERR325T6 MT (12:11)
[2019-01-13] MEDS ORDERED: AMIN30LI2 PO (12:11)
[2019-01-13] MEDS ORDERED: LEVO25TA2 MT (12:11)
[2019-01-13] MEDS ORDERED: FOLI1TAB63 MT (12:11)
[2019-01-13] MEDS ORDERED: POTA-9 MT (12:11)
[2019-01-13] MEDS ORDERED: AMLO10TA80 MT (12:12)
[2019-01-13] MEDS ORDERED: AMI2 MT (12:13)
[2019-01-13] MEDS ORDERED: HYDR-4133 MT (12:13)
[2019-01-13] MEDS: BLOOD SUGAR DIAGNOSTIC STRIP TEST SCH ×3 (12:41→21:29)
[2019-01-13] MEDS: INSULIN LISPRO 100 UNITS/ML SUBCUT SCH ×3 (12:42→21:00)
[2019-01-13] MEDS: ACETAMINOPHEN 325MG TABLET PO PRN ×2 (12:54→21:01)
[2019-01-13 16:00] VITALS: BP 148/50
[2019-01-13] MEDS: AMIODARONE HCL 200 MG TABLET PO SCH (17:39)
[2019-01-13 20:00] VITALS: BP 131/50
[2019-01-13] MEDS ORDERED: LORAZEPAM 0.5MG TABLET PO PRN (21:00)
[2019-01-13] MEDS ORDERED: VANCOMYCIN 1250MG in DEXTROSE 5% WATER 250ML IV NR (21:00)
[2019-01-13] MEDS ORDERED: DIPHENHYDRAMINE 25MG CAPSULE PO PRN (21:00)
[2019-01-13] MEDS: HYDRALAZINE HCL 10MG TABLET PO SCH (21:00)
[2019-01-14] VITALS (9 sets, daily range): BP systolic 102–141; BP diastolic 39–72
[2019-01-14] MEDS: BLOOD SUGAR DIAGNOSTIC STRIP TEST SCH ×4 (06:00→21:52)
[2019-01-14 06:25] LABS: BASOPHILS % 0.2 % (0.0-2.0); EOSINOPHILS % 2.8 % (0.0-5.0); HEMATOCRIT. 24.7 % (36.0-48.0); HEMOGLOBIN. 8.4 g/dL (12.0-16.0); LYMPHOCYTES % 11.7 % (20.0-50.0); MEAN CORPUSCULAR HEMOGLOBIN 32.5 pg (28.0-32.0); MEAN CORPUSCULAR VOLUME 95.6 fL (81.0-99.0); MEAN PLATELET VOLUME 7.8 fl (7.4-10.4); MONOCYTES % 9.1 % (2.0-8.0); NEUTROPHILS % 76.2 % (40.0-76.0); PLATELET 221 x1000/uL (130-400); RED BLOOD CELL COUNT 2.59 mill/uL (4.2-5.4); RED CELL DISTRIBUTION WIDTH 14.8 % (11.6-14.6)
[2019-01-14] MEDS ORDERED: LEVOTHYROXINE SODIUM 25MCG TABLET PO SCH (07:40)
[2019-01-14] MEDS: INSULIN LISPRO 100 UNITS/ML SUBCUT SCH ×4 (08:10→21:53)
[2019-01-14] MEDS ORDERED: AMLODIPINE 10MG TABLET PO SCH (09:00)
[2019-01-14] MEDS ORDERED: FOLIC ACID/VITAMIN B COMP W-C TABLET PO SCH (09:00)
[2019-01-14] MEDS: HYDRALAZINE HCL 10MG TABLET PO SCH ×2 (10:21→21:55)
[2019-01-14] MEDS: AMIODARONE HCL 200 MG TABLET PO SCH (10:22)
[2019-01-14] MEDS: ACETAMINOPHEN 325MG TABLET PO PRN (14:46)
[2019-01-14] MEDS ORDERED: EPOETIN ALFA 10000UNITS/ML VIAL SUBCUT SCH (21:00)
== END 2019-01-14 22:27 | DRG 637 ==
LOC: ER 23:32 → 7WST 01-13 04:20 → EDBEDREQTM 01-13 04:23 → EDBEDREQ 01-13 04:23 → EDBEDREQSVC 01-13 04:23 → ENRESERV 01-13 07:16
PROVIDERS: ADMIT Internal Medicine; ATTEND Internal Medicine
PROC: 5A1D70Z Performance of Urinary Filtration, Intermittent, Less than 6 Hours Per Day (ICD-10-PCS; principal; 2019-01-14)
DX: E11.65 Type 2 diabetes mellitus with hyperglycemia (principal); N18.6 End stage renal disease; L03.114 Cellulitis of left upper limb; E44.0 Moderate protein-calorie malnutrition; E87.1 Hypo-osmolality and hyponatremia; I12.0 Hypertensive chronic kidney disease with stage 5 chronic kidney disease or end stage renal disease; I82.602 Acute embolism and thrombosis of unspecified veins of left upper extremity; L03.113 Cellulitis of right upper limb; D63.8 Anemia in other chronic diseases classified elsewhere; E78.00 Pure hypercholesterolemia, unspecified; E11.22 Type 2 diabetes mellitus with diabetic chronic kidney disease; E78.5 Hyperlipidemia, unspecified; F03.90 Unspecified dementia, unspecified severity, without behavioral disturbance, psychotic disturbance, mood disturbance, and anxiety; J44.9 Chronic obstructive pulmonary disease, unspecified; Z99.2 Dependence on renal dialysis; Z68.22 Body mass index [BMI] 22.0-22.9, adult; Z88.0 Allergy status to penicillin
CPT/HCPCS: 36415; 71045; 80048; 82010; 82962; 83605; 84145; 84484; 93005; 93970; J0885; J1170; J1815; J2270; J2405; J3370; J7060; Q0163

== ENCOUNTER 2019-03-17 17:46 | Inpatient (IN) | payer MEDICARE, MEDICAID ==
[~2019-03-17] VITALS: Ht 304.8 cm; Wt 70.3 kg
[~2019-03-17 17:46] MED LIST changes: +AMIN30LI2 PO; +AMLO10TA80 MT; +FERR325T6 MT; +FOLI1TAB63 MT; +HYDR-4133 MT; +LEVO25TA2 MT; +POTA-9 MT; -SITA100T11 MT
[2019-03-17] MEDS ORDERED: CLONIDINE 0.1MG TABLET PO PRN (18:30)
[2019-03-17] MEDS ORDERED: DIPHENHYDRAMINE 50MG/ML VIAL IV PRN (18:30)
[2019-03-17] MEDS ORDERED: MAGNESIUM/ALUMINUM HYDROXIDE/SIMETHICONE 30ML UDC PO PRN (18:30)
[2019-03-17] MEDS ORDERED: ACETAMINOPHEN 325MG TABLET PO PRN (18:30)
[2019-03-17] MEDS ORDERED: DOCUSATE SODIUM 100MG CAPSULE PO PRN (18:30)
[2019-03-17] MEDS ORDERED: ONDANSETRON HCL 4MG/2ML INJ IV PRN (18:30)
[2019-03-17] MEDS ORDERED: HYDROCODONE/ACETAMINOPHEN 5/325MG TABLET PO PRN (18:30)
[2019-03-17] MEDS ORDERED: IPRATROPIUM/ALBUTEROL 0.5-3(2.5)MG/3ML NEB INH PRN (18:30)
[2019-03-17] MEDS ORDERED: GUAIFENESIN 200MG/10ML SUGAR FREE UDC PO PRN (18:30)
[2019-03-17 20:00] VITALS: BP 146/68
[2019-03-17 21:35] LABS: CHLORIDE 100 mEq/L (98-107)
[2019-03-17 21:38] LABS: BASOPHILS % 0.5 % (0.0-2.0); EOSINOPHILS % 2.7 % (0.0-5.0); HEMATOCRIT. 43.1 % (36.0-48.0); HEMOGLOBIN. 14.4 g/dL (12.0-16.0); LYMPHOCYTES % 14.1 % (20.0-50.0); MEAN CORPUSCULAR VOLUME 104.4 fL (81.0-99.0); MEAN PLATELET VOLUME 9.2 fl (7.4-10.4); MONOCYTES % 10.7 % (2.0-8.0); PLATELET 203 x1000/uL (130-400); RED BLOOD CELL COUNT 4.12 mill/uL (4.2-5.4); RED CELL DISTRIBUTION WIDTH 14.6 % (11.6-14.6)
[2019-03-17 21:41] LABS: PHOSPHORUS 3.7 mg/dL (2.5-4.9)
[2019-03-17 21:47] VITALS: BP 144/68
[2019-03-17] MEDS ORDERED: DEXTROSE 50% WATER 50ML SYRINGE IV PRN (22:15)
[2019-03-17 22:31] LABS: CREATINE KINASE 47 IU/L (26-192)
[2019-03-17 22:32] LABS: CREATINE KINASE MB FRACTION < 1.0 ng/mL (0.5-3.6)
[2019-03-18] VITALS: BP 133/54
[2019-03-18 04:00] VITALS: BP 121/91
[2019-03-18] MEDS: BLOOD SUGAR DIAGNOSTIC STRIP TEST SCH ×4 (07:35→21:00)
[2019-03-18] MEDS: INSULIN LISPRO 100 UNITS/ML SUBCUT SCH ×4 (07:50→22:36)
[2019-03-18 08:00] VITALS: BP 100/67
[2019-03-18 12:12] VITALS: BP 160/61
[2019-03-18 15:02] LABS: CREATINE KINASE 35 IU/L (26-192)
[2019-03-18 15:03] LABS: CREATINE KINASE MB FRACTION < 1.0 ng/mL (0.5-3.6)
[2019-03-18 17:20] VITALS: BP 129/75
[2019-03-18 20:00] VITALS: BP 142/74
[2019-03-19] VITALS: BP 142/70
[2019-03-19 04:00] VITALS: BP 151/71
[2019-03-19] MEDS: BLOOD SUGAR DIAGNOSTIC STRIP TEST SCH ×4 (07:40→21:00)
[2019-03-19] MEDS: INSULIN LISPRO 100 UNITS/ML SUBCUT SCH ×3 (08:05→18:13)
[2019-03-19 16:00] VITALS: BP 142/88
[2019-03-19 20:00] VITALS: BP 142/73
[2019-03-20 04:00] VITALS: BP 123/68
[2019-03-20] MEDS: INSULIN LISPRO 100 UNITS/ML SUBCUT SCH ×3 (06:50→12:20)
[2019-03-20] MEDS: BLOOD SUGAR DIAGNOSTIC STRIP TEST SCH ×2 (07:26→11:56)
[2019-03-20 08:00] VITALS: BP 124/66
[2019-03-20 12:00] VITALS: BP 132/67
[2019-03-20 13:00] VITALS: BP 142/75
== END 2019-03-20 14:45 | DRG 682 ==
LOC: 6EST 17:46
PROVIDERS: ADMIT Internal Medicine; ATTEND Internal Medicine
PROC: 5A1D70Z Performance of Urinary Filtration, Intermittent, Less than 6 Hours Per Day (ICD-10-PCS; principal; 2019-03-19)
DX: I12.0 Hypertensive chronic kidney disease with stage 5 chronic kidney disease or end stage renal disease (principal); N18.6 End stage renal disease; E46 Unspecified protein-calorie malnutrition; Z68.1 Body mass index [BMI] 19.9 or less, adult; E11.65 Type 2 diabetes mellitus with hyperglycemia; D63.1 Anemia in chronic kidney disease; E11.22 Type 2 diabetes mellitus with diabetic chronic kidney disease; E55.9 Vitamin D deficiency, unspecified; E78.5 Hyperlipidemia, unspecified; L89.159 Pressure ulcer of sacral region, unspecified stage; X58.XXXA Exposure to other specified factors, initial encounter; S40.811A Abrasion of right upper arm, initial encounter; S90.415A Abrasion, left lesser toe(s), initial encounter; L89.620 Pressure ulcer of left heel, unstageable; F03.90 Unspecified dementia, unspecified severity, without behavioral disturbance, psychotic disturbance, mood disturbance, and anxiety; J44.9 Chronic obstructive pulmonary disease, unspecified; L89.899 Pressure ulcer of other site, unspecified stage; Z99.2 Dependence on renal dialysis; Y93.89 Activity, other specified; Y92.89 Other specified places as the place of occurrence of the external cause; Y99.8 Other external cause status
CPT/HCPCS: 36415; 71045; 80048; 80076; 82550; 82553; 82962; 83735; 84100; 84134; 84443; 84484; 93970; 97162; 97166; C1893; J1815

== ENCOUNTER 2019-05-16 18:57 | Inpatient (IN) | payer MEDICARE, MEDICAID ==
[~2019-05-16] VITALS: Ht 162.6 cm; Wt 59.0 kg
[~2019-05-16 18:57] MED LIST changes: -AMLO10TA80 MT; -FERR325T6 MT; -POTA-9 MT
[2019-05-16] MEDS ORDERED: LORAZEPAM 2MG/ML CPJ IV ONE (21:00)
[2019-05-16 21:49] LABS: BASOPHILS % 0.4 % (0.0-2.0); EOSINOPHILS % 3.1 % (0.0-5.0); HEMATOCRIT. 29.4 % (36.0-48.0); HEMOGLOBIN. 9.7 g/dL (12.0-16.0); LYMPHOCYTES % 20.3 % (20.0-50.0); MEAN CORPUSCULAR HEMOGLOBIN 34.6 pg (28.0-32.0); MEAN PLATELET VOLUME 7.8 fl (7.4-10.4); MONOCYTES % 12.5 % (2.0-8.0); NEUTROPHILS % 63.7 % (40.0-76.0); PLATELET 215 x1000/uL (130-400); RED CELL DISTRIBUTION WIDTH 16.7 % (11.6-14.6)
[2019-05-16 21:55] LABS: CHLORIDE 102 mEq/L (98-107)
[2019-05-16 21:58] LABS: PARTIAL THROMBOPLASTIN TIME 23.9 sec (23.4-31.0); PROTHROMBIN TIME 10.1 sec (9.6-11.0)
[2019-05-16] MEDS ORDERED: IPRATROPIUM/ALBUTEROL 0.5-3(2.5)MG/3ML NEB NEB PRN (22:15)
[2019-05-16] MEDS ORDERED: DOCUSATE SODIUM 100MG CAPSULE PO PRN (22:15)
[2019-05-16] MEDS ORDERED: CLONIDINE 0.1MG TABLET PO PRN (22:15)
[2019-05-16] MEDS ORDERED: ONDANSETRON HCL 4MG/2ML INJ IV PRN (22:15)
[2019-05-16] MEDS ORDERED: ACETAMINOPHEN 325MG TABLET PO PRN (22:15)
[2019-05-17 05:05] LABS: BASOPHILS % 0.2 % (0.0-2.0); EOSINOPHILS % 3.1 % (0.0-5.0); HEMATOCRIT. 33.2 % (36.0-48.0); HEMOGLOBIN. 10.7 g/dL (12.0-16.0); LYMPHOCYTES % 12.8 % (20.0-50.0); MEAN CORPUSCULAR HEMOGLOBIN 33.9 pg (28.0-32.0); MEAN CORPUSCULAR VOLUME 105.6 fL (81.0-99.0); MEAN PLATELET VOLUME 7.5 fl (7.4-10.4); MONOCYTES % 9.8 % (2.0-8.0); NEUTROPHILS % 74.1 % (40.0-76.0); PLATELET 223 x1000/uL (130-400); RED BLOOD CELL COUNT 3.14 mill/uL (4.2-5.4); RED CELL DISTRIBUTION WIDTH 17.3 % (11.6-14.6)
[2019-05-17] MEDS ORDERED: LORAZEPAM 2MG/ML CPJ ONE (10:11)
[2019-05-17 14:00] VITALS: BP 126/66
[2019-05-17 16:10] VITALS: BP 161/66
[2019-05-17] MEDS ORDERED: LORAZEPAM 2MG/ML CPJ IV PRN (16:45)
[2019-05-17] MEDS: ATORVASTATIN CALCIUM 20MG TABLET PO SCH (17:59)
[2019-05-17] MEDS: HYDRALAZINE HCL 10MG TABLET PO SCH (17:59)
[2019-05-17] MEDS: AMIODARONE HCL 200 MG TABLET PO SCH (17:59)
[2019-05-17] MEDS: ASPIRIN 81MG TABLET PO SCH (17:59)
[2019-05-17] MEDS: AMLODIPINE 10MG TABLET PO SCH (17:59)
[2019-05-17] MEDS: LEVOTHYROXINE SODIUM 25MCG TABLET PO SCH (18:05)
[2019-05-17] MEDS ORDERED: DEXTROSE 50% WATER 50ML SYRINGE IV PRN (18:30)
[2019-05-17 19:22] LABS: CLARITY URINE CLOUDY (CLEAR); COLOR URINE YELLOW (YELLOW); KETONES URINE NEGATIVE (NEGATIVE); LEUKOCYTE ESTERASE URINE 3+ (NEGATIVE); NITRITE URINE NEGATIVE (NEGATIVE); OCCULT BLOOD URINE 1+ (NEGATIVE); PH URINE >=9.0 (4.5-8.0); PROTEIN URINE 3+ (NEGATIVE); SPECIFIC GRAVITY URINE 1.016 (1.005-1.030); UROBILINOGEN URINE 0.2 E.U./dL (0.2-1.0)
[2019-05-17 19:33] LABS: *BARBITURATES SCREEN URINE NEGATIVE (NEGATIVE); *BENZODIAZEPINES SCREEN URINE NEGATIVE (NEGATIVE); *COCAINE SCREEN URINE NEGATIVE (NEGATIVE); METHADONE URINE SCREEN NEGATIVE (NEGATIVE)
[2019-05-17 19:34] LABS: *AMPHETAMINES SCREEN URINE NEGATIVE (NEGATIVE); CANNABINOID URINE SCREEN NEGATIVE (NEGATIVE); OPIATES URINE SCREEN NEGATIVE (NEGATIVE); PHENCYCLIDINE URINE SCREEN NEGATIVE (NEGATIVE)
[2019-05-17 20:00] VITALS: BP 126/67
[2019-05-17] MEDS: BLOOD SUGAR DIAGNOSTIC STRIP TEST SCH (21:00)
[2019-05-17] MEDS: INSULIN LISPRO 100 UNITS/ML SUBCUT SCH (21:00)
[2019-05-17] MEDS: HEPARIN 5000 UNITS/ML VIAL SUBCUT SCH (21:47)
[2019-05-18] VITALS: BP 120/54
[2019-05-18 04:00] VITALS: BP 119/55
[2019-05-18] MEDS: LEVOTHYROXINE SODIUM 25MCG TABLET PO SCH (06:02)
[2019-05-18] MEDS: BLOOD SUGAR DIAGNOSTIC STRIP TEST SCH ×4 (06:03→21:50)
[2019-05-18 08:00] VITALS: BP 101/42
[2019-05-18] MEDS: AMIODARONE HCL 200 MG TABLET PO SCH (10:04)
[2019-05-18] MEDS: AMLODIPINE 10MG TABLET PO SCH (10:04)
[2019-05-18] MEDS: ATORVASTATIN CALCIUM 20MG TABLET PO SCH (10:05)
[2019-05-18] MEDS: ASPIRIN 81MG TABLET PO SCH (10:05)
[2019-05-18] MEDS: HYDRALAZINE HCL 10MG TABLET PO SCH ×2 (10:05→18:40)
[2019-05-18] MEDS: INSULIN LISPRO 100 UNITS/ML SUBCUT SCH ×4 (10:07→21:00)
[2019-05-18 12:00] VITALS: BP 95/53
[2019-05-18 12:57] LABS: BASOPHILS % 0.3 % (0.0-2.0); EOSINOPHILS % 2.4 % (0.0-5.0); HEMATOCRIT. 29.5 % (36.0-48.0); HEMOGLOBIN. 9.7 g/dL (12.0-16.0); LYMPHOCYTES % 12.7 % (20.0-50.0); MEAN CORPUSCULAR HEMOGLOBIN 34.3 pg (28.0-32.0); MEAN CORPUSCULAR VOLUME 105.1 fL (81.0-99.0); MEAN PLATELET VOLUME 8.6 fl (7.4-10.4); MONOCYTES % 9.8 % (2.0-8.0); NEUTROPHILS % 74.8 % (40.0-76.0); PLATELET 208 x1000/uL (130-400); RED BLOOD CELL COUNT 2.81 mill/uL (4.2-5.4); RED CELL DISTRIBUTION WIDTH 20.6 % (11.6-14.6)
[2019-05-18] MEDS: HEPARIN 5000 UNITS/ML VIAL SUBCUT SCH ×2 (13:48→21:00)
[2019-05-18 16:00] VITALS: BP 100/59
[2019-05-18] MEDS ORDERED: DIPHENHYDRAMINE 50MG/ML VIAL IV PRN (18:43)
[2019-05-18 20:00] VITALS: BP 120/70
[2019-05-18] MEDS ORDERED: CEFTRIAXONE IV NR (21:00)
[2019-05-18] MEDS ORDERED: WATER FOR INJECTION STERILE IV NR (21:00)
[2019-05-19] VITALS: BP 120/68
[2019-05-19 04:00] VITALS: BP 122/68
[2019-05-19] MEDS: LEVOTHYROXINE SODIUM 25MCG TABLET PO SCH (07:40)
[2019-05-19] MEDS ORDERED: ALTEPLASE 2MG/VIAL ITC ONE (08:30)
[2019-05-19] MEDS ORDERED: SODIUM BICARBONATE 4% (2.4MEQ) 5ML VIAL IV ONE (08:59)
[2019-05-19] MEDS: ATORVASTATIN CALCIUM 20MG TABLET PO SCH (09:00)
[2019-05-19] MEDS: AMLODIPINE 10MG TABLET PO SCH (09:00)
[2019-05-19] MEDS: HYDRALAZINE HCL 10MG TABLET PO SCH (09:00)
[2019-05-19] MEDS ORDERED: LIDOCAINE HCL 1% 20ML VIAL (Pyxis) INJ ONE (09:00)
[2019-05-19] MEDS: AMIODARONE HCL 200 MG TABLET PO SCH (09:00)
[2019-05-19] MEDS: HEPARIN 5000 UNITS/ML VIAL SUBCUT SCH ×2 (09:00→21:22)
[2019-05-19] MEDS: ASPIRIN 81MG TABLET PO SCH (09:00)
[2019-05-19] MEDS ORDERED: IOHEXOL-300 100 ML BOTTLE ONE (09:00)
[2019-05-19] MEDS ORDERED: HEPARIN 1000 UNITS/ML 10ML ONE (09:01)
[2019-05-19] MEDS ORDERED: FENTANYL CITRATE/PF 50MCG/ML 2ML VIAL ONE (09:45)
[2019-05-19] MEDS ORDERED: MIDAZOLAM HCL 2 MG/2 ML VIAL ONE (09:45)
[2019-05-19] MEDS ORDERED: DIPHENHYDRAMINE 50MG/ML VIAL ONE (09:45)
[2019-05-19] MEDS ORDERED: HEPARIN 5000 UNITS/ML VIAL IV ONE (10:45)
[2019-05-19] MEDS ORDERED: HEPARIN 5000 UNITS/ML VIAL IV NR (10:45)
[2019-05-19] MEDS ORDERED: HYDROMORPHONE HCL/PF 2MG/ML CPJ IV PRN (11:30)
[2019-05-19 12:00] VITALS: BP 146/57
[2019-05-19] MEDS: BLOOD SUGAR DIAGNOSTIC STRIP TEST SCH ×3 (13:10→21:12)
[2019-05-19] MEDS: INSULIN LISPRO 100 UNITS/ML SUBCUT SCH ×3 (13:10→21:21)
[2019-05-19] MEDS ORDERED: HALOPERIDOL LACTATE 5MG/ML VIAL IM PRN (15:30)
[2019-05-19] MEDS ORDERED: [UNRECOGNIZED DRUG - OTHER] XX SCH (15:30)
[2019-05-19] MEDS ORDERED: LEVOFLOXACIN XX SCH (15:30)
[2019-05-19 16:00] VITALS: BP 171/41
[2019-05-19] MEDS ORDERED: LEVOFLOXACIN 250MG TABLET PO SCH (16:30)
[2019-05-19] MEDS ORDERED: LORAZEPAM 2MG/ML CPJ IM PRN (16:45)
[2019-05-19 20:00] VITALS: BP 118/72
[2019-05-19] MEDS ORDERED: CEFTRIAXONE 1 G PREMIX 50 ML IV SCH (20:00)
[2019-05-20] VITALS: BP 124/76
[2019-05-20 04:00] VITALS: BP 135/82
[2019-05-20] MEDS: BLOOD SUGAR DIAGNOSTIC STRIP TEST SCH ×3 (07:40→17:40)
[2019-05-20 08:00] VITALS: BP 154/85
[2019-05-20] MEDS ORDERED: IOHEXOL-300 100 ML BOTTLE ONE (08:18)
[2019-05-20] MEDS: LEVOTHYROXINE SODIUM 25MCG TABLET PO SCH (09:44)
[2019-05-20] MEDS: ATORVASTATIN CALCIUM 20MG TABLET PO SCH (09:44)
[2019-05-20] MEDS: AMIODARONE HCL 200 MG TABLET PO SCH (09:44)
[2019-05-20] MEDS: HYDRALAZINE HCL 10MG TABLET PO SCH ×2 (09:44→18:29)
[2019-05-20] MEDS: ASPIRIN 81MG TABLET PO SCH (09:44)
[2019-05-20] MEDS: HEPARIN 5000 UNITS/ML VIAL SUBCUT SCH (09:45)
[2019-05-20] MEDS: AMLODIPINE 10MG TABLET PO SCH (09:47)
[2019-05-20] MEDS: INSULIN LISPRO 100 UNITS/ML SUBCUT SCH ×3 (09:48→18:30)
[2019-05-20 12:00] VITALS: BP 146/91
[2019-05-20 16:00] VITALS: BP 117/96
== END 2019-05-20 19:30 | DRG 252 ==
LOC: ER 19:09 → 7WST 22:00 → ENRESERV 05-17 11:55
PROVIDERS: ADMIT Internal Medicine; ATTEND Internal Medicine
PROC: 02HV33Z Insertion of Infusion Device into Superior Vena Cava, Percutaneous Approach (ICD-10-PCS; principal; 2019-05-19)
PROC: 037Y3ZZ Dilation of Upper Artery, Percutaneous Approach (ICD-10-PCS; 2019-05-19)
PROC: 057Y3ZZ Dilation of Upper Vein, Percutaneous Approach (ICD-10-PCS; 2019-05-19)
PROC: B5181ZA Fluoroscopy of Superior Vena Cava using Low Osmolar Contrast, Guidance (ICD-10-PCS; 2019-05-19)
PROC: B548ZZA Ultrasonography of Superior Vena Cava, Guidance (ICD-10-PCS; 2019-05-19)
PROC: B51W1ZZ Fluoroscopy of Dialysis Shunt/Fistula using Low Osmolar Contrast (ICD-10-PCS; 2019-05-19)
PROC: 3E04317 Introduction of Other Thrombolytic into Central Vein, Percutaneous Approach (ICD-10-PCS; 2019-05-19)
PROC: B5171ZZ Fluoroscopy of Left Subclavian Vein using Low Osmolar Contrast (ICD-10-PCS; 2019-05-19)
PROC: B51N1ZZ Fluoroscopy of Left Upper Extremity Veins using Low Osmolar Contrast (ICD-10-PCS; 2019-05-19)
PROC: B5181ZZ Fluoroscopy of Superior Vena Cava using Low Osmolar Contrast (ICD-10-PCS; 2019-05-19)
DX: T82.858A Stenosis of other vascular prosthetic devices, implants and grafts, initial encounter (principal); N18.6 End stage renal disease; T82.319A Breakdown (mechanical) of unspecified vascular grafts, initial encounter; N39.0 Urinary tract infection, site not specified; I12.0 Hypertensive chronic kidney disease with stage 5 chronic kidney disease or end stage renal disease; Y82.8 Other medical devices associated with adverse incidents; F03.90 Unspecified dementia, unspecified severity, without behavioral disturbance, psychotic disturbance, mood disturbance, and anxiety; D63.8 Anemia in other chronic diseases classified elsewhere; E78.5 Hyperlipidemia, unspecified; M85.80 Other specified disorders of bone density and structure, unspecified site; I70.0 Atherosclerosis of aorta; E11.22 Type 2 diabetes mellitus with diabetic chronic kidney disease; E11.51 Type 2 diabetes mellitus with diabetic peripheral angiopathy without gangrene; J44.9 Chronic obstructive pulmonary disease, unspecified; F41.9 Anxiety disorder, unspecified; K76.9 Liver disease, unspecified; D75.89 Other specified diseases of blood and blood-forming organs; I48.91 Unspecified atrial fibrillation; L89.150 Pressure ulcer of sacral region, unstageable; L89.309 Pressure ulcer of unspecified buttock, unspecified stage; S51.812A Laceration without foreign body of left forearm, initial encounter; X58.XXXA Exposure to other specified factors, initial encounter; Y93.89 Activity, other specified; Y92.89 Other specified places as the place of occurrence of the external cause; Z99.2 Dependence on renal dialysis; Z78.1 Physical restraint status; Y99.8 Other external cause status; Z88.0 Allergy status to penicillin
CPT/HCPCS: 36010; 36415; 36573; 36905; 36907; 71045; 80048; 80061; 80305; 81003; 82962; 84443; 86850; 86900; 87077; 87186; 93005; 99285; C1725; C1766; C1769; C1887; J0696; J1200; J1644; J1815; J2060; J2250; J2997; J3010; J3490; J7040; Q9967

== ENCOUNTER 2019-05-23 21:03 | Inpatient (IN) | payer MEDICARE, MEDICAID ==
[~2019-05-23] VITALS: Ht 157.5 cm; Wt 56.8 kg
[2019-05-23 22:53] LABS: BASOPHILS % 0.3 % (0.0-2.0); EOSINOPHILS % 3.5 % (0.0-5.0); HEMATOCRIT. 24.4 % (36.0-48.0); HEMOGLOBIN. 8.1 g/dL (12.0-16.0); LYMPHOCYTES % 13.3 % (20.0-50.0); MEAN CORPUSCULAR HEMOGLOBIN 35.3 pg (28.0-32.0); MEAN CORPUSCULAR VOLUME 105.5 fL (81.0-99.0); MEAN PLATELET VOLUME 7.8 fl (7.4-10.4); MONOCYTES % 10.4 % (2.0-8.0); NEUTROPHILS % 72.5 % (40.0-76.0); PLATELET 224 x1000/uL (130-400); RED BLOOD CELL COUNT 2.31 mill/uL (4.2-5.4); RED CELL DISTRIBUTION WIDTH 20.5 % (11.6-14.6)
[2019-05-23] MEDS ORDERED: HALOPERIDOL LACTATE 5MG/ML VIAL IM ONE (23:00)
[2019-05-24 00:29] LABS: CHLORIDE 112 mEq/L (98-107)
[2019-05-24 09:00] VITALS: BP 149/81
[2019-05-24] MEDS ORDERED: ACETAMINOPHEN 325MG TABLET PO PRN (09:15)
[2019-05-24] MEDS ORDERED: DEXTROSE 50% WATER 50ML SYRINGE IV PRN (09:15)
[2019-05-24] MEDS ORDERED: ONDANSETRON HCL 4MG/2ML INJ IV PRN (09:15)
[2019-05-24] MEDS: RISPERIDONE 1MG TABLET PO SCH (10:29)
[2019-05-24 11:59] VITALS: BP 121/54
[2019-05-24] MEDS: BLOOD SUGAR DIAGNOSTIC STRIP TEST SCH ×3 (12:58→21:31)
[2019-05-24] MEDS ORDERED: ASPI-1393 PO (13:05)
[2019-05-24] MEDS ORDERED: HJ10 IJ (13:05)
[2019-05-24] MEDS: INSULIN LISPRO 100 UNITS/ML SUBCUT SCH ×3 (14:12→21:31)
[2019-05-24] MEDS ORDERED: LORAZEPAM 2MG/ML CPJ IM SCH (14:15)
[2019-05-24 16:00] VITALS: BP 135/47
[2019-05-24] MEDS ORDERED: LORAZEPAM 2MG/ML CPJ IM PRN (17:15)
[2019-05-24 20:00] VITALS: BP 137/59
[2019-05-24] MEDS ORDERED: EPOETIN ALFA 10000UNITS/ML VIAL SUBCUT NR (21:00)
[2019-05-24] MEDS: HYDRALAZINE HCL 10MG TABLET PO SCH (21:30)
[2019-05-24] MEDS: ATORVASTATIN CALCIUM 20MG TABLET PO SCH (21:30)
[2019-05-25] VITALS: BP 129/80
[2019-05-25 04:00] VITALS: BP 145/66
[2019-05-25] MEDS: LEVOTHYROXINE SODIUM 50MCG TABLET PO SCH (06:25)
[2019-05-25] MEDS: BLOOD SUGAR DIAGNOSTIC STRIP TEST SCH ×4 (06:26→20:59)
[2019-05-25] MEDS: INSULIN LISPRO 100 UNITS/ML SUBCUT SCH ×3 (06:26→21:23)
[2019-05-25 06:36] LABS: HEMATOCRIT. 27.1 % (36.0-48.0); HEMOGLOBIN. 8.9 g/dL (12.0-16.0); MEAN CORPUSCULAR HEMOGLOBIN 34.8 pg (28.0-32.0); MEAN CORPUSCULAR VOLUME 105.6 fL (81.0-99.0); MEAN PLATELET VOLUME 8.3 fl (7.4-10.4); PLATELET 264 x1000/uL (130-400); RED BLOOD CELL COUNT 2.57 mill/uL (4.2-5.4); RED CELL DISTRIBUTION WIDTH 20.7 % (11.6-14.6)
[2019-05-25 08:00] VITALS: BP 155/72
[2019-05-25] MEDS: AMIODARONE HCL 200 MG TABLET PO SCH (08:00)
[2019-05-25] MEDS ORDERED: AMLODIPINE 10MG TABLET PO SCH (09:00)
[2019-05-25] MEDS: RISPERIDONE 1MG TABLET PO SCH (10:08)
[2019-05-25] MEDS: ASPIRIN 81MG EC TABLET PO SCH (10:08)
[2019-05-25] MEDS: HYDRALAZINE HCL 10MG TABLET PO SCH (10:09)
[2019-05-25] MEDS: ENOXAPARIN 30MG/0.3ML SYR SUBCUT SCH (10:10)
[2019-05-25 12:00] VITALS: BP 132/84
[2019-05-25] MEDS ORDERED: HYDR-4135 MT (13:30)
[2019-05-25 15:22] LABS: PLATELET ESTIMATE NORMAL
[2019-05-25 16:00] VITALS: BP 122/70
[2019-05-25 20:00] VITALS: BP 130/57
[2019-05-25] MEDS: HYDRALAZINE HCL 50MG TABLET PO SCH (21:10)
[2019-05-25] MEDS: ATORVASTATIN CALCIUM 20MG TABLET PO SCH (21:10)
[2019-05-26] VITALS (7 sets, daily range): BP systolic 107–135; BP diastolic 41–79
[2019-05-26] MEDS: BLOOD SUGAR DIAGNOSTIC STRIP TEST SCH ×3 (06:07→21:00)
[2019-05-26] MEDS: INSULIN LISPRO 100 UNITS/ML SUBCUT SCH ×3 (06:32→22:00)
[2019-05-26] MEDS: LEVOTHYROXINE SODIUM 50MCG TABLET PO SCH (06:32)
[2019-05-26] MEDS ORDERED: LOSARTAN POTASSIUM 50 MG TABLET PO SCH (09:00)
[2019-05-26] MEDS: HYDRALAZINE HCL 50MG TABLET PO SCH ×3 (09:00→21:00)
[2019-05-26] MEDS: AMIODARONE HCL 200 MG TABLET PO SCH ×2 (09:00→10:25)
[2019-05-26] MEDS: RISPERIDONE 1MG TABLET PO SCH (10:25)
[2019-05-26] MEDS: ASPIRIN 81MG EC TABLET PO SCH (10:25)
[2019-05-26] MEDS: ENOXAPARIN 30MG/0.3ML SYR SUBCUT SCH (10:25)
== END 2019-05-26 22:30 | DRG 682 ==
LOC: ER 21:03 → EDBEDREQDT 05-24 01:49 → EDBEDREQ 05-24 01:49 → EDBEDREQTM 05-24 01:49 → EDBEDREQ 05-24 01:50 → ENRESERV 05-24 07:07 → 8WST 05-24 08:09
PROVIDERS: ADMIT Internal Medicine; ATTEND Internal Medicine
PROC: 5A1D70Z Performance of Urinary Filtration, Intermittent, Less than 6 Hours Per Day (ICD-10-PCS; principal; 2019-05-24)
PROC: 5A1D70Z Performance of Urinary Filtration, Intermittent, Less than 6 Hours Per Day (ICD-10-PCS; 2019-05-26)
DX: I12.0 Hypertensive chronic kidney disease with stage 5 chronic kidney disease or end stage renal disease (principal); N18.6 End stage renal disease; E44.0 Moderate protein-calorie malnutrition; G93.40 Encephalopathy, unspecified; E11.22 Type 2 diabetes mellitus with diabetic chronic kidney disease; F03.90 Unspecified dementia, unspecified severity, without behavioral disturbance, psychotic disturbance, mood disturbance, and anxiety; D63.8 Anemia in other chronic diseases classified elsewhere; E03.9 Hypothyroidism, unspecified; E87.8 Other disorders of electrolyte and fluid balance, not elsewhere classified; E11.51 Type 2 diabetes mellitus with diabetic peripheral angiopathy without gangrene; L89.159 Pressure ulcer of sacral region, unspecified stage; L89.899 Pressure ulcer of other site, unspecified stage; E78.5 Hyperlipidemia, unspecified; J44.9 Chronic obstructive pulmonary disease, unspecified; Z99.2 Dependence on renal dialysis; Z91.15 Patient's noncompliance with renal dialysis; Z88.0 Allergy status to penicillin; Z79.899 Other long term (current) drug therapy; Z79.82 Long term (current) use of aspirin; Z68.22 Body mass index [BMI] 22.0-22.9, adult; Z78.1 Physical restraint status
CPT/HCPCS: 36415; 71045; 80048; 82962; 83880; 84484; 93005; 99285; C1893; J0885; J1630; J1650; J1815; J2060